=== PATIENT | female | born 1980 | race Caucasian/White ===

== ENCOUNTER 2017-01-30 21:03 | Emergency (ER) | payer OTHER ==
[2017-01-30 22:03] LABS: BILIRUBIN NEGATIVE (NEGATIVE); BLOOD 3+ Ery/uL (NEGATIVE); CLARITY HAZY (CLEAR); COLOR RED (YELLOW); GLUCOSE (U) NORMAL (NORMAL); KETONE (U) NEGATIVE (NEGATIVE); LEUKOCYTES NEGATIVE Leu/uL (NEGATIVE); NITRITE NEGATIVE (NEGATIVE); PROTEIN 1+ mg/dL (NEGATIVE); SPECIFIC GRAVITY >=1.030 (1.001-1.030); pH 5.5 (5.0-9.0)
[2017-01-30 22:08] LABS: BACTERIA TRACE; URINARY RBC 20-50
[2017-01-30 22:13] LABS: BASOPHIL 2.6 % (0-2); EOSINOPHIL 9.4 % (0-5); HCT 38.3 % (37.0-47.0); HGB 12.7 g/dl (12.5-16.0); LYMPHOCYTE 45.7 % (15-48); MCH 28.6 pg (25.0-31.0); MCHC 33.2 g/dL (32.0-36.0); MCV 86.3 fL (78.0-100.0); MONOCYTE 10.2 % (0-12); MPV 10.1 fL (6.0-9.5); NEUTROPHIL 32.1 % (41-80); PLT 258 K/uL (150-400); RBC 4.44 M/uL (4.20-5.40); RDW 13.6 % (11.5-14.0); WBC 5.3 K/uL (4.0-10.5)
[2017-01-30 22:44] LABS: ALBUMIN 3.7 g/dL (3.5-5.0); BILIRUBIN - TOTAL 0.2 mg/dL (0.1-1.0); CREATININE 0.9 mg/dL (0.5-1.0); GLOBULIN (CALCULATION) 2.1 g/dL (2.2-4.2); POTASSIUM 3.6 mmol/L (3.5-5.1); TOTAL PROTEIN 5.8 g/dL (6.4-8.3)
== END 2017-01-30 23:20 | disposition home or self-care (01) ==
LOC: FER 21:03
PROVIDERS: Emergency Medicine
DX: R31.9 Hematuria, unspecified (principal); R30.0 Dysuria; F17.210 Nicotine dependence, cigarettes, uncomplicated; Z88.5 Allergy status to narcotic agent
CPT/HCPCS: 36415; 80053; 81001; 82150; 83690; 85025

== ENCOUNTER 2020-08-29 14:21 | Emergency (ER) | payer OTHER ==
[2020-08-29] MEDS ORDERED: CYCLOBENZAPRINE10 MG PO (16:03)
[2020-08-29] MEDS ORDERED: ETODOLAC500 MG PO (16:03)
== END 2020-08-29 16:13 | disposition home or self-care (01) ==
LOC: FER 14:21
DX: M51.16 Intervertebral disc disorders with radiculopathy, lumbar region (principal)
CPT/HCPCS: 72131; J1885